=== PATIENT | male | born 1955 | race Two or more races ===

== ENCOUNTER 2019-12-12 00:09 | Inpatient (IN) | payer MEDICAID ==
[2019-12-10 22:45] VITALS: BP 147/97
--- NOTE | 2019-12-11 22:45 | NUR ---
Direct Admit Note KYRIE CASTAÑEDA admitted to Telemetry unit as a direct admit from [facility] per doctors order. Patient oriented to RICARDA GIRON RN primary RN, unit, room, bed, and unit policies regarding patient care and visiting hours. Patient now on continuous telemetry monitoring, tele box #32 and telemetry reading on arrival to unit is NSR @69 with BBB. Patient Weighed by bedscale and encouraged to call if they need something. All questions and concerns addressed, patient verbalized understanding. MD notified of patients arrival and admit orders received. Per [facility], patient had a 10 second run of V-Tach during transport and reported 7/10 pain at this time. 12 lead in transport showed ST elevation according to transporting medic. EKG performed on arrival and shows NSR @[address] elevation noted. Patient reports 1/10 pain at this time. Placed on continuous telemetry monitoring.
[~2019-12-12] VITALS: Ht 167.6 cm; Wt 68.0 kg
[2019-12-12] MEDS ORDERED: NITROGLYCERIN 0.4 MG SL TAB SL PRN (01:15)
[2019-12-12] MEDS ORDERED: MORPHINE SULF INJ 2 MG/ML SYRINGE 1ML IV PRN (01:15)
[2019-12-12] MEDS ORDERED: ONDANSETRON HCL 4 MG/2 ML VIAL IV PRN (01:15)
[2019-12-12] MEDS ORDERED: ACETAMINOPHEN 500 MG TAB PO PRN (01:15)
[2019-12-12] MEDS ORDERED: METF-370 PO (02:16)
[2019-12-12] MEDS ORDERED: GLIM2TAB33 PO (02:16)
--- NOTE | 2019-12-12 02:20 | NUR ---
Patient called to report chest pain. Described as 10/10 pressure radiating to his back and neck. Blood pressure assessed and is 160/95, heart rate 68, spo2 98% on RA. One dose of Nitroglycerin 0.4mg administered SL at 0234. EKG performed, which states SR with ventricular preexcitation. Pain 5 minutes post administration is 0/10.
[2019-12-12 05:00] VITALS: BP 131/79
[2019-12-12 05:28] LABS: Basophils # (auto) 0 uL; Basophils % (auto) 0.4 % (0.0-2.0); Eosinophils # (auto) 0.1 uL; Hematocrit 43.4 % (41.0-53.0); Hemoglobin 14.7 g/dL (13.5-17.5); Lymphocytes # (auto) 1.2 uL; Lymphocytes % (auto) 21.9 % (10.0-50.0); Mean Corpuscular Hemoglobin 28.5 pg (28.0-32.0); Mean Corpuscular Hgb Conc. 33.8 g/dL (32.0-36.0); Mean Corpuscular Volume 84.3 fL (80.0-100.0); Monocytes # (auto) 0.5 uL; Monocytes % (auto) 9.7 % (0.0-12.0); Neutrophils # (auto) 3.8 uL; Platelet Count (auto) 186 10^3/uL (140-450); Red Blood Cells 5.15 10^6/uL (4.5-5.90); Red Cell Distribution Width 15.5 % (11.8-14.3); White Blood Cell 5.7 10^3/uL (4.4-10.8)
[2019-12-12 05:38] LABS: INR 1.05 (0.9-1.15); Partial Thromboplastin Time 29.8 sec (23.64-32.05)
[2019-12-12 05:52] LABS: Calcium 8.9 mg/dL (8.5-10.1); Potassium 3.9 mmol/L (3.5-5.1)
[2019-12-12] MEDS: SODIUM CHLORIDE 0.9% 1,000 ML IV SCH ×2 (06:01→13:45)
[2019-12-12] MEDS ORDERED: DEXTROSE (50%) 50ML SYRG IV PRN (06:30)
--- NOTE | 2019-12-12 06:49 | NUR ---
MRSA swab collected and sent to lab.
--- NOTE | 2019-12-12 07:30 | NUR ---
OPENING NOTE Assumed care of patient AOx4, no S/S of SOB/distress noted. Denies any pain. Safety precautions in place. Bed set to lowest position/locked, bedside rails up x2, call light within reach. Instructed patient to call for assistance. Updated patient on POC. Patient verbalized understanding. Will continue to monitor Q1hr and PRN.
[2019-12-12 09:00] VITALS: BP 108/69
[2019-12-12] MEDS: ASPirin 81 mg TAB PO SCH (09:19)
[2019-12-12] MEDS ORDERED: METOPROLOL TARTRATE 25 MG TAB PO SCH (10:00)
[2019-12-12] MEDS: ACCU-CHEK COMFORT CURVE STRIP VI SCH ×2 (12:00→18:00)
[2019-12-12] MEDS: InsuLIN REG 1unit/0.01ml Soln (100units/ml) SC SCH ×2 (12:01→18:00)
[2019-12-12 12:30] VITALS: BP 127/68
[2019-12-12] MEDS ORDERED: IODIXANOL 320MG/ML 100ML BTL IV ONE ×2 (12:47→13:18)
[2019-12-12] MEDS ORDERED: LIDOCAINE 2%HCL (LOCAL ANESTH.) INJ 20ML MDV ONE (12:47)
--- NOTE | 2019-12-12 12:48 | NUR ---
OFF UNIT Patient transported to equipment operator/laborer/supervisor via bed. No S/S of SOB/distress noted on time of departure.
[2019-12-12] MEDS ORDERED: ANGIOMAX 250 MG VIAL IV ONE (12:57)
[2019-12-12] MEDS ORDERED: HEPARIN SODIUM (PORCINE) 5000 UNITS/ML 1ML VIAL ONE (12:57)
[2019-12-12] MEDS ORDERED: VERAPAMIL 2.5MG/ML INJ 2ML VIAL IV ONE (12:57)
[2019-12-12] MEDS ORDERED: fentaNYL CITRATE 100 MCG/2 ML VL ONE (12:57)
[2019-12-12] MEDS ORDERED: SODIUM CHL 0.9% 50 ML ONE (12:58)
[2019-12-12] MEDS ORDERED: MIDAZOLAM HCL 1MG/1ML-2 ML VIAL ONE (12:58)
[2019-12-12] MEDS ORDERED: diphenhdrAMINE HCL 50 MG/1 ML VL ONE (13:30)
[2019-12-12] MEDS ORDERED: TICAGRELOR 90 MG TAB ONE ×2 (13:33→13:44)
--- NOTE | 2019-12-12 13:35 | NUR ---
VASC BAND 1500, 2ml removed 1515, 2ml removed 1530, 1ml removed vasc band removed, 2x2 with Tegaderm applied. Will continue to monitor. Addendum: 12/12/19 at 1605 by ANDRÉS LEAL RN RN note time 1533
--- NOTE | 2019-12-12 14:59 | NUR ---
BACK ON UNIT Patient brought back to unit via bed. No S/S of distress/SOB noted. Vasc band to left wrist intact. Family at bedside. Will continue to monitor for changes.
[2019-12-12 15:28] LABS: Cholesterol 114 mg/dL (< 200)
[2019-12-12 15:31] LABS: HDL Cholesterol 36 mg/dL (40-59); LDL Cholesterol 71 mg/dL (< 100); Triglycerides 84 mg/dL (< 150)
[2019-12-12] MEDS: ATORVASTATIN 20 MG TAB PO SCH ×2 (16:32→22:46)
[2019-12-12 17:24] VITALS: BP 117/77
--- NOTE | 2019-12-12 19:35 | NUR ---
OPENING SHIFT NOTE Assumed care of patient who is A&O x4. Currently on RA with no s/s of distress or SOB. Denies pain at this time. Patient is s/p angiogram and stent placement with Dr. Muñoz today. Dressing to access site on left wrist is CDI. No hematoma or bleeding noted. Pulse is intact and capillary refill is <3 seconds. Patient is ambulatory without the use of assistive devices at baseline. PIV to left AC is intact and patent. IVF infusing as ordered. Bed is in low locked position with side rails up x2. Call light is within reach and patient encouraged to call for assistance when needed. Will continue to monitor for changes PRN.
[2019-12-12] MEDS ORDERED: CLOPIDOGREL 300 MG TAB PO ONE (21:00)
[2019-12-12 22:00] VITALS: BP 131/69
[2019-12-12] MEDS ORDERED: ATORVASTATIN 20 MG TAB PO SCH (22:00)
[2019-12-12] MEDS: CARVEDILOL 3.125 MG TAB PO SCH (22:46)
[2019-12-13] MEDS: ACCU-CHEK COMFORT CURVE STRIP VI SCH ×3 (00:08→12:00)
[2019-12-13] MEDS: InsuLIN REG 1unit/0.01ml Soln (100units/ml) SC SCH ×3 (00:08→12:00)
[2019-12-13] MEDS: SODIUM CHLORIDE 0.9% 1,000 ML IV SCH (02:15)
[2019-12-13 06:03] VITALS: BP 123/73
--- NOTE | 2019-12-13 07:30 | NUR ---
OPENING SHIFT NOTE Assumed care of patient comfortably resting in bed. No S/S of distress/SOB/pain noted/reported at this time. Bed in low position, locked, and call light within reach. Bed rails x2 up. Patient updated on POC for the day and to call for assistance as needed, patient verbalized understanding.
[2019-12-13 09:00] VITALS: BP 135/83
[2019-12-13] MEDS ORDERED: ATOR20TA50 PO (09:30)
[2019-12-13] MEDS ORDERED: ASPI81CH43 PO (09:30)
[2019-12-13] MEDS ORDERED: LISI-646 PO (09:30)
[2019-12-13] MEDS ORDERED: CLOP75TA28 PO (09:30)
[2019-12-13] MEDS ORDERED: CLOPIDOGREL BISULFATE 75 MG TAB PO SCH (10:00)
[2019-12-13] MEDS: ASPirin 81 mg TAB PO SCH (10:10)
[2019-12-13] MEDS: CARVEDILOL 3.125 MG TAB PO SCH (10:14)
[2019-12-13 12:27] VITALS: BP 135/83
[2019-12-13 13:00] VITALS: BP 139/84
--- NOTE | 2019-12-13 13:48 | NUR ---
Discharge instructions given as ordered. Encourage to follow up with PMD as instructed. All questions and concerns addressed. Patient verbalized understanding. IV removed with catheter intact, pressure dressing applied. Telemetry unit # [id number] returned to ICU. Patient taken to vehicle via wheelchair with all personal belongings, accompanied by staff and family member. No distress noted at time of departure.
--- NOTE | 2019-12-13 14:05 | NUR ---
TELE MONITOR Tele box # 32 sent back to ICU via bullet. special procedure tech Lilibeth is aware.
== END 2019-12-13 13:45 | disposition home or self-care (01) | DRG 174 ==
LOC: TELE-CENTR 00:09
PROVIDERS: ADMIT Hospitalist; ATTEND Hospitalist
PROC: 027035Z Dilation of Coronary Artery, One Artery with Two Drug-eluting Intraluminal Devices, Percutaneous Approach (ICD-10-PCS; principal; 2019-12-12)
PROC: B211YZZ Fluoroscopy of Multiple Coronary Arteries using Other Contrast (ICD-10-PCS; 2019-12-12)
PROC: 4A033BC Measurement of Arterial Pressure, Coronary, Percutaneous Approach (ICD-10-PCS; 2019-12-12)
DX: I21.4 Non-ST elevation (NSTEMI) myocardial infarction (principal); E11.9 Type 2 diabetes mellitus without complications; E78.5 Hyperlipidemia, unspecified; I25.10 Atherosclerotic heart disease of native coronary artery without angina pectoris; I10 Essential (primary) hypertension; Z82.49 Family history of ischemic heart disease and other diseases of the circulatory system; Z83.3 Family history of diabetes mellitus
CPT/HCPCS: 36415; 71045; 80048; 80061; 82962; 83036; 83695; 85025; 85610; 85730; 87081; 99152; 99153; C1874; G0378; J1815; J2250; Q9967